=== PATIENT | female | born 1970 | race Caucasian/White ===

== ENCOUNTER → 2017-04-09 | Outpatient (CLI) | payer BC ==
--- NOTE | 2017-04-09 12:45 | DIAGNOSTIC IMAGING REPORT ---
TWO VIEW CHEST CLINICAL HISTORY: Cough. FINDINGS: PA and lateral chest radiographs are obtained. No prior studies are available for comparison at the time of dictation. The cardiomediastinal silhouette is unremarkable. The lungs and pleural spaces are clear. There is no pneumothorax. The bony thorax appears intact. There is minimal thoracic scoliosis. IMPRESSION: No active disease in the chest. Electronically signed by: Lalo Leavitt M.D. 04/09/2017 12:44 PM Dictated Date/Time: 04/09/2017 12:43 PM
== END | disposition home or self-care (01) ==
LOC: C.RAD 12:15
PROVIDERS: ATTEND Family Medicine
DX: R05 Cough (principal)